=== PATIENT | female | born 1990 | race Two or more races ===

== ENCOUNTER 2024-11-11 14:54 | Emergency (ER) | payer MEDICAID, OTHER ==
[~2024-11-11] VITALS: Ht 167.6 cm; Wt 109.0 kg
--- NOTE | 2024-11-11 16:52 | ED.PDOC ---
Musculoskeletal HPI Comments 34y female presents to the ED for chief complaint of extremity pain. Patient states he has been having right foot pain for the past two weeks. Patient states the pain is sharp constant, rating the pain 9/10 with no associated exacerbating or relieving factors. Patient states that she has been taking ibuprofen but states her pain is still constant and has not been alleviated. Patient states that she has been having exacerbation of the pain when attempting to ambulate. 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 Pt states she had fever last night and states it caused exacerbation of her foot pain end-stage she came to the ED for further evaluation and rest symptoms. Patient and a ED his temperature 98.6 F were \ otherwise all other vitals and normal range. Chief Complaint: Fever Time Seen by MD: 15:00 Reviewed Notes: Medications, Allergies Allergies: Coded Allergies: NO KNOWN ALLERGIES (Unverified , 11/11/24) Information Source: Patient Mode of Arrival: Ambulatory Past Medical History PAST MEDICAL HISTORY: Denies Surgical History: Denies all surgeries Social History Smoker: Non-Smoker Alcohol: Denies ETOH Use Drugs: Denies Drug Use All Other Systems: Reviewed and Negative (See HPI) Physical Exam General Appearance: No Apparent Distress, Normal HEENT: Normal ENT Inspection, Pharynx Normal, TMs Normal Neck: Full Range of Motion, Non-Tender, Normal, Normal Inspection Respiratory: Chest Non-Tender, Lungs Clear, No Accessory Muscle Use, No Respiratory Distress, Normal Breath Sounds Cardiovascular: No Edema, No JVD, No Murmur, No Gallop, Normal Peripheral Pulses, Regular Rate/Rhythm Breast Exam: Deferred Gastrointestinal: No Organomegaly, Non Tender, No Pulsatile Mass, Normal Bowel Sounds, Soft Genitalia: Deferred Pelvic: Deferred Rectal: Deferred Extremities: No calf tenderness, Normal capillary refill, Normal inspection, Normal range of motion, Non-tender, No pedal edema Musculoskeletal : Apperance: Normal 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 Was a procedure done?: No Differential Diagnosis EXT Differential Diagnosis: Sprain, Strain, Arthritis X-Ray, Labs, Meds, VS Vital Signs Date Time Temp Pulse Resp B/P (MAP) Pulse Ox O2 Delivery O2 Flow Rate FiO2 11/11/24 14:56 98.6 78 16 119/79 98 98.6 X-Ray, Labs, Meds, VS Comment 34y female presents to the ED for chief complaint of extremity pain. Patient arrives alert and oriented, ABC's intact, afebrile, vital signs stable, saturating well in room air Peripheral IV insertion+ labs were ordered. CBC was ordered to exclude anemia, blood loss, or infection. BMP was ordered to exclude electrolyte abnormalities, renal failure, dehydration, hyperglycemia CMP was ordered to exclude electrolyte abnormalities, renal failure, dehydration, hyperglycemia and/or liver enzyme abnormalities. PT and INR were ordered to rule out coagulopathy. Troponin and BNP were ordered to rule out myocardial infarction, or congestive heart failure. Urinalysis was ordered to rule out UTI or hematuria. Diagnostic imaging ordered by me and results interpreted by radiology : Labs in the ED showed (pertinent+ and then pertinent-) Patient was given:_. Tolerated medications with no adverse reaction. Additional MDM Review of External, Non-ED records: External records reviewed. Discussion with independent historian (EMS, family) history obtained from the patient/parents (if applicable) at bedside Chronic conditions affecting care: None Social determinants of health affecting care: None Consideration of admission (observation or admission): I considered escalation of care to admission for this patient, however given the reassuring workup, the patient is safe for outpatient management. Discussion with the Radiology: No Tests considered but not performed: Prescription medication considered but not given: 12 lead EKG interpretation: Patient Education/Counseling: Diagnosis, Treatment Family Education/Counseling: No Family Present Departure 1 Departure Time of Disposition: 16:51 Impression: Primary Impression: Foot tendinitis Disposition: 01 HOME / SELF CARE / HOMELESS Condition: Fair Discharged With: Self Critical Care Note Critical Care Time?: No Stability Stability form required: No Heart Score Heart Score: Heart Score Response (Comments) Value History N/A 0 EKG N/A 0 Age N/A 0 Risk Factors N/A 0 Troponin N/A 0 Total 0 I personally scribed for GERALD CEJA NP ([email or web address]) on 11/11/24 at 17:03. Electronically submitted by Ernestine Larry ([email or web address]). GERALD CEJA NP Nov 11, 2024 16:51
[2024-11-11] MEDS: KETOROLAC TROMETH 60MG/2ML VIAL IM ONE (16:58)
[2024-11-11 17:09] VITALS: BP 142/87; PULSE 78; RESP 16; TEMP 98.7; O2SAT 98
== END 2024-11-11 17:11 | disposition home or self-care (01) ==
LOC: ER 14:54
DX: M77.50 Other enthesopathy of unspecified foot and ankle (principal); Z79.899 Other long term (current) drug therapy
CPT/HCPCS: 96372; 99283; J1885